=== PATIENT | female | born 1985 | race African-American/Black ===

== ENCOUNTER 2023-01-14 18:44 | Emergency (ER) | payer MEDICAID ==
[~2023-01-14] VITALS: Ht 154.9 cm; Wt 45.0 kg
[2023-01-14] MEDS ORDERED: OLANZAPINE 5MG TABLET ODT PO ONE (19:15)
[2023-01-14] MEDS ORDERED: LORAZEPAM 1MG TABLET PO ONE (19:15)
[2023-01-14 20:37] LABS: BASOPHILS % 0.4 % (0.0-2.0); EOSINOPHILS % 0.2 % (0.0-5.0); HEMATOCRIT. 35.6 % (36.0-48.0); HEMOGLOBIN. 11.6 g/dL (12.0-16.0); LYMPHOCYTES % 18.1 % (20.0-50.0); MEAN CORPUSCULAR HEMOGLOBIN 26.9 pg (28.0-32.0); MEAN CORPUSCULAR VOLUME 82.7 fL (81.0-99.0); MEAN PLATELET VOLUME 9.4 fl (7.4-10.4); MONOCYTES % 5.5 % (2.0-8.0); NEUTROPHILS % 75.8 % (40.0-76.0); PLATELET 331 x1000/uL (130-400); RED BLOOD CELL COUNT 4.31 mill/uL (4.2-5.4); RED CELL DISTRIBUTION WIDTH 16.5 % (11.6-14.6)
[2023-01-14 20:49] LABS: CLARITY URINE CLEAR (CLEAR); COLOR URINE YELLOW (YELLOW); KETONES URINE NEGATIVE (NEGATIVE); LEUKOCYTE ESTERASE URINE 1+ (NEGATIVE); NITRITE URINE NEGATIVE (NEGATIVE); OCCULT BLOOD URINE NEGATIVE (NEGATIVE); PH URINE 6.5 (4.5-8.0); PROTEIN URINE NEGATIVE (NEGATIVE); SPECIFIC GRAVITY URINE 1.002 (1.005-1.030); UROBILINOGEN URINE 0.2 E.U./dL (0.2-1.0)
[2023-01-14 20:50] LABS: CHLORIDE 108 mEq/L (98-107)
[2023-01-14 20:56] LABS: HCG SCREEN NEGATIVE
[2023-01-14 20:57] LABS: ETHANOL BLOOD < 10 mg/dL
[2023-01-14 21:00] LABS: *AMPHETAMINES SCREEN URINE NEGATIVE (NEGATIVE); *BARBITURATES SCREEN URINE NEGATIVE (NEGATIVE); *BENZODIAZEPINES SCREEN URINE NEGATIVE (NEGATIVE); *COCAINE SCREEN URINE NEGATIVE (NEGATIVE); METHADONE URINE SCREEN NEGATIVE (NEGATIVE); OPIATES URINE SCREEN NEGATIVE (NEGATIVE); PHENCYCLIDINE URINE SCREEN NEGATIVE (NEGATIVE)
[2023-01-14 21:17] LABS: CANNABINOID URINE SCREEN PRESUMTIVE POSITIVE (NEGATIVE)
[2023-01-15 12:10] VITALS: BP 129/70
== END 2023-01-15 13:13 | disposition home or self-care (01) ==
LOC: ER 18:44
DX: S61.412A Laceration without foreign body of left hand, initial encounter (principal); X78.8XXA Intentional self-harm by other sharp object, initial encounter; F43.20 Adjustment disorder, unspecified; Y93.89 Activity, other specified; Y92.89 Other specified places as the place of occurrence of the external cause; Z91.52 Personal history of nonsuicidal self-harm; Z59.00 Homelessness unspecified
CPT/HCPCS: 36415; 80053; 80305; 80307; 80320; 80329; 81003; 84703; 85025; 87426; 99285; C9803; G0480

== ENCOUNTER 2023-07-19 13:39 | Emergency (ER) | payer MEDICAID, OTHER ==
[~2023-07-19] VITALS: Ht 157.5 cm; Wt 64.0 kg
[2023-07-19 14:01] VITALS: BP 96/64; RESP 18; TEMP 98; O2SAT 100
[2023-07-19 14:03] VITALS: PULSE 70
[2023-07-19] MEDS ORDERED: KETOROLAC 60MG/2ML VIAL IM ONE (14:30)
[2023-07-19] MEDS ORDERED: IBUP-2029 MT (14:39)
[2023-07-19] MEDS ORDERED: AMOX-494 MT (14:39)
[2023-07-19] MEDS ORDERED: T3 PO (14:39)
[2023-07-19] MEDS ORDERED: CHLO473M2 MT (14:39)
== END 2023-07-19 15:18 | disposition home or self-care (01) ==
LOC: ER 13:54
DX: K04.7 Periapical abscess without sinus (principal); R68.84 Jaw pain; F41.9 Anxiety disorder, unspecified; F12.90 Cannabis use, unspecified, uncomplicated; Z91.040 Latex allergy status
CPT/HCPCS: 99283; 81025; 96372; J1885